=== PATIENT | male | born 1965 | race Two or more races ===

== ENCOUNTER 2018-09-10 10:05 | Emergency (ER) | payer SELFPAY ==
[~2018-09-10] VITALS: Ht 180.3 cm; Wt 122.5 kg
[2018-09-10 10:37] VITALS: BP 160/58
[2018-09-10] MEDS ORDERED: TETRACAINE HCL 0.5% OPTH(EYE) SOLN 4ML LEFTEYE ONE (11:30)
== END 2018-09-10 11:51 | disposition home or self-care (01) ==
LOC: ER 10:05
DX: T15.02XA Foreign body in cornea, left eye, initial encounter (principal); X58.XXXA Exposure to other specified factors, initial encounter; Y93.89 Activity, other specified; Y99.8 Other external cause status; Y92.89 Other specified places as the place of occurrence of the external cause
CPT/HCPCS: 65220